=== PATIENT | female | born 1960 | race Caucasian/White ===

== ENCOUNTER → 2017-12-01 | Outpatient (CLI) | payer OTHER ==
[2017-12-02 13:42] LABS: Stool Occult Bld Immuno 1 Negative (NEGATIVE)
== END | disposition home or self-care (01) ==
LOC: LAB EV 08:10
PROVIDERS: Nurse Practitioner Family
DX: Z12.11 Encounter for screening for malignant neoplasm of colon (principal)
CPT/HCPCS: G0328

== ENCOUNTER → 2019-08-14 | Outpatient (CLI) | payer OTHER | LOC: LAB SHORT 08:46 → LAB EV 08:46 | DX: H01.9 Unspecified inflammation of eyelid (principal) | CPT/HCPCS: 87070; 87077; 87186; 87205 ==